=== PATIENT | male | born 1960 | race Caucasian/White ===

== ENCOUNTER 2020-04-22 16:10 | Emergency (ER) | payer BC, SELFPAY ==
[2020-04-22 16:12] VITALS: BP 131/87; PULSE 112; RESP 18; TEMP 36.6; O2SAT 100
--- NOTE | 2020-04-22 16:20 | ECG_ITS ---
Measurements Intervals [place] Rate: 112 P: 48 MI: 134 QRS: -5 QRSD: 113 T: 56 QT: 328 QTc: 448 Interpretive Statements SINUS TACHYCARDIA INTRAVENTRICULAR CONDUCTION DELAY DELAYED PRECORDIAL R/S TRANSITION BORDERLINE ST-T WAVE ABNORMALITY- INF/HIGH LAT LEADS BASELINE ARTIFACT- I, II, III, V1 ABNORMAL ECG Electronically Signed On 04-22-2020 16:32:23 ASSISTANT INVENTORY MANAGER by Juan C Myles D.O.
--- NOTE | 2020-04-22 16:21 | ED.SYNCOPE ---
HPI - Syncope General Chief Complaint: Syncope Stated Complaint: syncope thurs/black stools today Time Seen by Provider: 04/22/20 16:19 History of Present Illness HPI narrative: 59 yo with a h/o GERD, htn presents to the ED for dark stools. He reports that he had a syncopal episode 2 days ago. Prior to that he remembers feeling hot and dizzy. He thought that he overheated. Since that time he has begun having dark tarry stools. He also reports that he feels very fatigued. He has never had these symptoms before. No abdominal pain, nausea, vomiting, diarrhea, CP, cough, SOB, fever. Related Data Home Medications Medication Instructions Recorded Confirmed amlodipine 5 mg PO DAILY 04/22/20 04/22/20 losartan 100 mg PO DAILY 04/22/20 04/22/20 pravastatin 20 mg PO DAILY 04/22/20 04/22/20 Allergies Allergy/AdvReac Type Severity Reaction Status Date / Time No Known Allergies Allergy Verified 04/22/20 16:20 Review of Systems Review of Systems: All systems reviewed & are unremarkable except as noted in HPI and below (HPI and below) Constitutional: Constitutional: Denies chills, Reports fatigue and Denies fever(s) Cardiovascular: Cardiovascular: Denies chest pain Respiratory: Respiratory: Denies cough and Denies dyspnea Gastrointestinal: Gastrointestinal: Denies abdominal pain, Reports bloating, Denies heartburn, Denies diarrhea, Denies nausea and Denies vomiting Genitourinary: Genitourinary: Denies dysuria Neurologic: Reports syncope Endocrine: Endocrine: Reports fatigue Hematologic/Lymphatic: Hematologic/Lymphatic: Denies easy bleeding and Denies easy bruising PMFSH Past Medical History Medical History (Updated 04/22/20 @ 17:52 by Live Valera MD) GERD (gastroesophageal reflux disease) HTN (hypertension) Surgical History Surgical History (Updated 04/22/20 @ 16:40 by Live Valera MD) History of [place] fundoplication Social History Social History (Updated 04/22/20 @ 16:40 by Live Valera MD) Smoking status: Never smoker Gender identity (if verbalized by the patient): Male Exam Const: General: healthy appearing, no acute distress and alert Orientation/consciousness: patient oriented x3 HENMT: Head: normal to inspection Eyes: Other: pale conjuctiva Neck: Neck: normal visual inspection and no lymphadenopathy Resp: Effort & Inspection: normal respiratory effort Auscultation: clear to auscultation bilaterally, no rales, no rhonchi and no wheezes Cardio: Jugular venous distension: no JVD Rate: tachycardic Rhythm: regular rhythm Heart sounds: no murmurs GI: GI Palp: Yes Soft to palpation and No Tenderness to palpation present (GI) Other: Nontender, nondistended Skin: General skin exam: pallor Neuro: General: patient oriented x3, moves all extremities, no focal motor deficits and CN's II-XI intact bilaterally Speech: normal speech Extrem: General: normal to inspection and no edema Psych: Appearance: well kempt Affect: normal affect Course Vital Signs Vital signs: Vital Signs Temperature 36.6 C 04/22/20 16:12 Pulse Rate 112 H 04/22/20 16:12 Respiratory Rate 18 04/22/20 16:12 Blood Pressure 131/87 04/22/20 16:12 Pulse Oximetry 100 04/22/20 16:12 Temperature 36.6 C 04/22/20 16:12 Pulse Rate 89 04/22/20 17:56 Respiratory Rate 16 04/22/20 17:56 Blood Pressure 137/99 H 04/22/20 17:56 Pulse Oximetry 100 04/22/20 17:56 MDM - Syncope MDM Narrative Medical decision making narrative: hemoglobin stable. Still possible that he has some blood in his stool. I will start him on protonix and have him follow-up with his PCP. Medical Records Attestation: I reviewed the patient's medical records. Lab Data Attestation: I reviewed the patient's lab results. Result diagrams: 04/22/20 16:23 04/22/20 16:52 Labs: Lab Results 04/22/20 04/22/20 04/22/20 Range/Units 16:23 16:48 16:52 WBC 6.1 (4.5-10.0)
[2020-04-22 16:30] LABS: Basophils Percent Auto 0.7 % (0.2-1.2); Eosinophils Absolute Auto 0.1 K/mm3 (0-0.3); Eosinophils Percent Auto 1.6 % (0-4.4); Hematocrit 33.6 % (42.0-52.0); Hemoglobin 12.5 g/dL (14.0-18.0); Immature Granulocyte Absolute 0.02 K/mm3 (0.00-0.031); Immature Granulocyte Percent A 0.3 % (0-0.5); Lymphocytes Absolute Auto 2.11 K/mm3 (0.9-3.2); Lymphocytes Percent Auto 34.4 % (18.3-44.2); Mean Corpuscular HGB Conc 37.2 g/dl (32-36); Mean Corpuscular Hemoglobin 32.5 pg (26-34); Mean Corpuscular Volume 87.3 fl (80-100); Mean Platelet Volume 9.4 fl (7.4-10.4); Monocytes Absolute Auto 0.4 K/mm3 (0.1-0.6); Monocytes Percent Auto 6.9 % (2.6-8.5); Neutrophils Absolute Auto 3.4 K/mm3 (1.3-6.7); Neutrophils Percent Auto 56.1 % (45.5-73.1); Platelet Count Result 203 k/mm3 (150-375); Red Blood Count 3.85 M/mm3 (4.6-6.20); Red Cell Distribution Width 12.2 % (11.5-14.5); White Blood Count 6.1 K/mm3 (4.5-10.0)
[2020-04-22 16:57] VITALS: BP 125/83; PULSE 90
[2020-04-22 16:58] VITALS: BP 131/91; PULSE 97
[2020-04-22 16:59] VITALS: BP 136/94; PULSE 107
[2020-04-22] MEDS: PANTOPRAZOLE SODIUM IV 40 MG VIAL IV PUSH (17:10)
[2020-04-22] MEDS: SODIUM CHLORIDE 0.9% IV 1,000 ML 999 ML IV CONT (17:10)
[2020-04-22 17:11] LABS: Partial Thromboplastin Time 24.8 SECONDS (22.3-36.8); Prothrombin Time 13.5 Seconds (11.1-14.7)
[2020-04-22 17:12] LABS: Anion Gap 7 mmol/L (8-16); Blood Urea Nitrogen 14 mg/dL (9-20); Calcium 9.2 mg/dL (8.4-10.2); Carbon Dioxide 25 mmol/L (22-30); Chloride 106 mmol/L (98-107); Estimated CRCL calculation 88 ml/min; Estimated Glomerular Filt Rate > 60; Glucose 93 mg/dL (75-110); Potassium 3.9 mmol/L (3.4-5.0); Sodium 138 mmol/L (137-145)
[2020-04-22 17:13] LABS: Alanine Aminotransferase 19 U/L (4-50); Albumin Level 4.2 g/dL (3.5-5.1); Alkaline Phosphatase 45 U/L (38-126); Aspartate Amino Transferase 27 U/L (17-59); Bilirubin,Total 0.5 mg/dL (0.2-1.3)
[2020-04-22 17:56] VITALS: BP 137/99; PULSE 89; RESP 16; O2SAT 100
== END 2020-04-22 18:03 | disposition home or self-care (01) ==
PROVIDERS: Emergency Provider Emergency Medicine; PCP Internal Medicine
DX: R19.5 Other fecal abnormalities (principal); R55 Syncope and collapse; K21.9 Gastro-esophageal reflux disease without esophagitis; R53.83 Other fatigue; I10 Essential (primary) hypertension
CPT/HCPCS: 36415; 80048; 80076; 85025; 85610; 85730; 86850; 86900; 86901; 93005; 96361; 96374; 99284; C9113; J7030